=== PATIENT | female | born 1955 | race Asian ===

== ENCOUNTER → 2020-08-06 07:41 | Outpatient (CLI) | payer OTHER, SELFPAY ==
[2020-08-06 08:46] LABS: Add Manual Diff / Slide Review NO; Basophils Absolute Auto 0 /uL (0-100); Basophils Percent Auto 0.9 % (0-2); Eosinophils Absolute Auto 100 /uL (0-450); Eosinophils Percent Auto 2.6 % (2-4); Hematocrit 39.5 % (36-46); Hemoglobin 13.3 g/dL (12.0-16.0); Lymphocytes Absolute Auto 1300 /uL (1100-4500); Lymphocytes Percent Auto 30.7 % (25-40); Mean Corpuscular HGB Conc 33.7 % (30-36); Mean Corpuscular Hemoglobin 30.9 PG (26-34); Mean Corpuscular Volume 91.7 fL (80-100); Monocytes Absolute Auto 400 /uL (0-900); Neutrophils Absolute Auto 2400 /uL (1500-7000); Neutrophils Percent Auto 55.8 % (50-75); Platelet Count 247 X10^3/uL (150-400); Red Blood Cell Count 4.31 X10^6/uL (4.0-5.2); Red Cell Distribution Width 13.1 % (11.6-14.8); White Blood Cell Count 4.3 X10^3/uL (4.5-11.0)
[2020-08-06 09:05] LABS: HEMOLYSIS < 15 (0-50)
[2020-08-06 09:06] LABS: Alanine Aminotransferase 16 IU/L (<35); Albumin Globulin Ratio 1.7 (1.0-2.8); Alkaline Phosphatase 63 U/L (38-126); Aspartate Aminotransferase 25 IU/L (14-36); BUN Creatinine Ratio 26.4 (6-22); Bilirubin Total 0.2 mg/dL (0.2-1.3); Blood Urea Nitrogen 19 mg/dL (7-17); Calcium 9.4 mg/dL (8.4-10.2); Carbon Dioxide 29 mmol/L (22-32); Chloride 106 mmol/L (98-107); Cholesterol 220 mg/dL (140-199); Estimated Glomerular Filt Rate > 60.0 mL/min (>60); Globulin 2.4 g/dL (1.7-4.1); Glucose 85 mg/dL (80-110); HDL Cholesterol 69 mg/dL (40-60); LDL Cholesterol Calculated 136 mg/dL (<100); Sodium 140 mmol/L (137-145); Total Protein 6.4 g/dL (6.3-8.2); Triglycerides 77 mg/dL (35-150)
[2020-08-06 09:46] LABS: TSH w/ Reflex to FT4 2.85 uIU/mL (0.47-4.68)
[2020-08-06 10:15] LABS: Estradiol, Total 14.6 pg/mL
== END ==
PROVIDERS: PCP Registered Nurse Diabetes Educator; Referring Provider Registered Nurse Diabetes Educator; Visit Provider Registered Nurse Diabetes Educator
DX: Z00.00 Encounter for general adult medical examination without abnormal findings (principal); N95.1 Menopausal and female climacteric states
CPT/HCPCS: 36415; 80053; 80061; 82670; 83001; 84443; 85025

== ENCOUNTER → 2021-08-25 12:47 | Outpatient (CLI) | payer OTHER, SELFPAY ==
--- NOTE | 2021-08-25 12:50 | DI.MG.S_ITS ---
BILATERAL DIGITAL SCREENING MAMMOGRAM 3D/2D WITH CAD: 08/25/2021 CLINICAL: Routine screening. Comparison is made to exam dated: 12/07/2018 mammogram - outside location. The tissue of both breasts is heterogeneously dense. This may lower the sensitivity of mammography. Current study was also evaluated with a Computer Aided Detection (CAD) system. No significant masses, calcifications, or other findings are seen in either breast. There has been no significant interval change. IMPRESSION: NEGATIVE There is no mammographic evidence of malignancy. A 1 year screening mammogram is recommended. This exam was interpreted at Station ID: [id number]. NOTE: For mammograms, a report in lay terms will be sent to the patient. Approximately 15% of breast malignancies will not be visualized mammographically. In the management of a palpable breast mass, a negative mammogram must not discourage biopsy of a clinically suspicious lesion. Electronically Signed By: Crystal rosenbaum/tara:08/25/2021 13:47:48 letter sent: Normal Exam ACR BI-RADS Category 1: Negative 3341F
== END ==
PROVIDERS: PCP Registered Nurse Diabetes Educator; Referring Provider Registered Nurse Diabetes Educator; Visit Provider Registered Nurse Diabetes Educator
DX: Z12.31 Encounter for screening mammogram for malignant neoplasm of breast (principal)
CPT/HCPCS: 77063; 77067

== ENCOUNTER 2022-05-27 08:56 | Day surgery (SDC) | payer OTHER, SELFPAY ==
--- NOTE | 2022-05-27 | PATH_ITS ---
[facility] Accession Number: [id number] No. of containers..01 Tissue . 01 Material submitted: . colon - PROXIMAL TRANSVERSE COLON POLYP . 01 Diagnosis: Proximal Transverse Colon Polyp, Biopsy: Tubular adenoma. MRV 06/02/2022 1407 Local . 01 Electronically signed: . Zelda Graham MD, Pathologist NPI- [id number] . 01 Gross description: . PROXIMAL TRANSVERSE COLON POLYP: Received in formalin are 2 fragment(s) of arceo, soft tissue measuring 0.3 x 0.2 x 0.2 cm to 0.2 x 0.2 x 0.1 cm submitted entirely in 1 cassette(s) /CPE 05/28/2022 0626 Local . 01 Pathologist provided ICD-10: D12.3 . 01 CPT . 042791 Specimen Comment: A courtesy copy of this report has been sent to [phone] Performed at: 01 [facility] [address] [place] [address] Suite [facility], [place], [place] [id number] MD Van Elam MD Phone: [phone]
[2022-05-27 09:16] VITALS: BP 111/65; PULSE 63; RESP 16; TEMP 36.1; O2SAT 100; BMI 20.9
[2022-05-27] MEDS: LACTATED RINGERS 1,000 ML 150 ML IV (09:39)
--- NOTE | 2022-05-27 09:43 | P.HP_ITS ---
History of Present Illness History of Present Illness Date Patient Seen: 05/27/22 Time Patient Seen: 09:43 Chief complaint: SDC Narrative: colon cancer screening Patient History Medical History Chronic right hip pain Dyslipidemia Elevated LDL cholesterol level Family & Social History Social History: household members spouse Tobacco & Substance use: Smoking Status Never smoker alcohol intake frequency holiday/special occasion Substance Use Type marijuana Meds Home Medications and Allergies Home Medications Medication Instructions Recorded Confirmed Type sodium,potassium,mag sulfates 17.5 See Rx Instructions PO .COMPLEX 05/12/22 05/27/22 Rx gram-3.13 gram-1.6 gram oral soln #354 mL (Suprep Bowel Prep Kit) Allergies Allergy/AdvReac Type Severity Reaction Status Date / Time sulfamethoxazole Allergy Intermediate Rash Verified 05/27/22 09:07 [From Bactrim] trimethoprim [From Bactrim] Allergy Intermediate Rash Verified 05/27/22 09:07 Review of Systems Review of Systems ROS: Yes All systems reviewed with the patient and are negative except as otherwise documented Exam Vital Signs (past 8 hours): - 05/27/22 09:16 Temperature 97 F L Pulse Rate 63 Respiratory Rate 16 Blood Pressure 111/65 Pulse Oximetry 100 Oxygen Delivery Method Room Air Oxygen Delivery Method Room Air Const General: cooperative and healthy appearing [facility] Head: normal to inspection, normocephalic and atraumatic Eyes Periorbital: periorbital findings normal Neck Neck: trachea midline Chest Chest: normal inspection of the chest Resp Effort & Inspection: normal respiratory effort and able to speak in complete sentences Cardio Rate: regular rate Rhythm: regular rhythm GI Palpation: soft Skin General: turgor normal Neuro General: patient alert, patient awake and patient oriented x3 Cognition: normal cognition Psych Appearance: grossly normal Judgment: judgment good Assessment & Plan Assessment & Plan narrative: colon cancer screening colonoscopy with MAC Time Spent With Patient Time with patient: less than 30 minutes Critical Care time: I spent a total of [] minutes of critical care time on this patient's care today; this time is exclusive of procedural time.
--- NOTE | 2022-05-27 09:52 | PM.OP.COLON ---
Operative Date/Time/Diagnoses Date of procedure: 05/27/22 Time of procedure: 10:09 Pre-op diagnosis: colon cancer screening Post-op diagnosis: same Procedure & Clinicians Study performed: Colonoscopy with polypectomy Same procedure as scheduled: Yes Indications: Colon cancer screening Surgeon: Jo Reyes Procedure Notes Procedure in detail: Preop diagnosis: Colon cancer Postop diagnosis: Same Operative procedure: Colonoscopy with hot forceps polypectomy under MAC Surgeon: Jazmine Reyes MD Findings: Single 4 mm polyp in the proximal transverse. Taken with hot forceps Procedure: Patient placed in a lateral position. Rectal exam performed showing normal tone no masses. Colonoscope inserted into the rectum and advanced to ileocecal valve with minimal difficulty. Insufflation and extraction scope and the above findings. Retroflex was included in the rectum. Impression: Single 4 mm polyp proximal transverse taken with hot forceps polypectomy. No diverticulosis Plan: Repeat colonoscopy in 5 years unless otherwise indicated by change in clinical condition Findings: polyp(s) (Proximal transverse, 4 mm polyp) Specimen(s): other (Proximal transverse polyp) Complications: none Post-procedure Recommendations: Colonoscopy in 5 years Follow up: as needed Disposition: PACU
[2022-05-27 10:15] VITALS: BP 89/57; PULSE 56; RESP 16; TEMP 36.2; O2SAT 99
[2022-05-27 10:20] VITALS: BP 102/70; PULSE 54; RESP 16; O2SAT 99
[2022-05-27 10:35] VITALS: BP 106/60; PULSE 58; RESP 18; O2SAT 99
== END 2022-05-27 10:47 | disposition home or self-care (01) ==
PROVIDERS: PCP Registered Nurse Diabetes Educator; Referring Provider Surgery; Visit Provider Surgery
PROC: 0DJD8ZZ Inspection of Lower Intestinal Tract, Via Natural or Artificial Opening Endoscopic (ICD-10-PCS; CPT 45378; principal; 2022-05-27 10:00)
DX: Z12.11 Encounter for screening for malignant neoplasm of colon (principal); D12.3 Benign neoplasm of transverse colon
CPT/HCPCS: 45384; J2704

== ENCOUNTER → 2022-06-08 08:31 | Outpatient (CLI) | payer OTHER, SELFPAY ==
[2022-06-08 09:18] LABS: Hematocrit 40.3 % (36-46); Hemoglobin 13.4 g/dL (12.0-16.0); Mean Corpuscular HGB Conc 33.1 % (30-36); Mean Corpuscular Hemoglobin 30.1 PG (26-34); Mean Corpuscular Volume 90.7 fL (80-100); Platelet Count 249 X10^3/uL (150-400); Red Blood Cell Count 4.45 X10^6/uL (4.0-5.2); Red Cell Distribution Width 14.3 % (11.6-14.8); White Blood Cell Count 5.3 X10^3/uL (4.5-11.0)
[2022-06-08 09:45] LABS: Alanine Aminotransferase 37 IU/L (<35); Albumin 4.1 g/dL (3.5-5.0); Albumin Globulin Ratio 1.3 (1.0-2.8); Alkaline Phosphatase 73 U/L (38-126); Aspartate Aminotransferase 33 IU/L (14-36); BUN Creatinine Ratio 18.1 (6-22); Bilirubin Total 0.4 mg/dL (0.2-1.3); Blood Urea Nitrogen 13 mg/dL (7-17); Carbon Dioxide 30 mmol/L (22-32); Chloride 104 mmol/L (98-107); Cholesterol 285 mg/dL (140-199); Estimated Glomerular Filt Rate > 60 mL/min (>60); Globulin 3.1 g/dL (1.7-4.1); Glucose 91 mg/dL (80-110); HDL Cholesterol 64 mg/dL (40-60); HEMOLYSIS 16 (0-50); LDL Cholesterol Calculated 196 mg/dL (<100); Potassium 4.1 mmol/L (3.4-5.1); Sodium 140 mmol/L (137-145); Total Protein 7.2 g/dL (6.3-8.2); Triglycerides 123 mg/dL (35-150)
[2022-06-08 10:17] LABS: TSH w/ Reflex to FT4 3.43 uIU/mL (0.47-4.68)
== END ==
PROVIDERS: PCP Registered Nurse Diabetes Educator; Referring Provider Registered Nurse Diabetes Educator; Visit Provider Registered Nurse Diabetes Educator
DX: Z00.00 Encounter for general adult medical examination without abnormal findings (principal); E78.5 Hyperlipidemia, unspecified
CPT/HCPCS: 36415; 80053; 80061; 84443; 85027

== ENCOUNTER → 2022-08-01 15:16 | Outpatient (CLI) | payer OTHER, SELFPAY ==
[2022-08-01 16:22] LABS: BUN Creatinine Ratio 17.4 (6-22); Blood Urea Nitrogen 12 mg/dL (7-17); Calcium 9.6 mg/dL (8.4-10.2); Carbon Dioxide 31 mmol/L (22-32); Chloride 104 mmol/L (98-107); Estimated Glomerular Filt Rate > 60 mL/min (>60); Glucose 87 mg/dL (80-110); HEMOLYSIS < 15 (0-50); Potassium 3.8 mmol/L (3.4-5.1); Sodium 140 mmol/L (137-145)
== END ==
PROVIDERS: PCP Registered Nurse Diabetes Educator; Referring Provider Urology; Visit Provider Urology
DX: N36.2 Urethral caruncle (principal); R31.21 Asymptomatic microscopic hematuria; Z77.22 Contact with and (suspected) exposure to environmental tobacco smoke (acute) (chronic); Z87.891 Personal history of nicotine dependence
CPT/HCPCS: 36415; 80048; 81002

== ENCOUNTER → 2022-08-08 12:36 | Outpatient (CLI) | payer OTHER, SELFPAY ==
--- NOTE | 2022-08-08 12:37 | DI.CT.S_ITS ---
PROCEDURE: CT ABDOMEN PELVIS WO/W CON INDICATIONS: Asymptomatic microscopic hematuria/tobacco exposure TECHNIQUE: Optional 5 mm thick noncontrast images acquired from the diaphragm to the symphysis pubis. After the administration of intravenous contrast, 5 mm thick images acquired from the diaphragm to the symphysis pubis after a 10-minute delay. 2 mm thick coronal and sagittal reformats were then performed of the kidneys and ureters. For radiation dose reduction, the following was used: automated exposure control, adjustment of mA and/or kV according to patient size. COMPARISON: None. FINDINGS: Image quality: Excellent. Lung bases: Lung bases are clear. Heart size is normal. Urinary system: Both kidneys are normal in size, without hydronephrosis or nephrolithiasis on pre-contrast images. No perinephric fat stranding. There is normal bilateral renal enhancement. Renal calyces appear normal in morphology when filled with contrast. Opacified portions of both ureters demonstrate normal caliber. Bladder wall thickness is normal. No calcified bladder stones. Other solid organs: Liver is normal in size and enhancement. Fluid attenuating liver cysts. Gallbladder is unremarkable . Biliary system is non dilated. Pancreas enhances normally. Spleen is normal in size and enhancement. No adrenal nodules. Peritoneum and bowel: Bowel loops demonstrate normal wall thickness and caliber. No free fluid or air. Nodes and vessels: No retroperitoneal or mesenteric adenopathy by size criteria. Aorta and inferior vena cava are normal in size. Abdominal wall: No ventral hernias. Pelvis: No pathologic free pelvic fluid. No inguinal hernias or adenopathy. Bones: No suspicious bony lesions. No vertebral body compression fractures. IMPRESSION: No findings to explain the patient's hematuria. No filling defects within the opacified renal collecting system and no nephrolithiasis. Dictated by: Logan Carter M.D. on 08/08/2022 at 14:18 Approved by: Logan Carter M.D. on 08/08/2022 at 14:21
== END ==
PROVIDERS: PCP Registered Nurse Diabetes Educator; Referring Provider Urology; Visit Provider Urology
DX: R31.21 Asymptomatic microscopic hematuria (principal); Z87.891 Personal history of nicotine dependence; Z77.22 Contact with and (suspected) exposure to environmental tobacco smoke (acute) (chronic)
CPT/HCPCS: 74178; Q9967

== ENCOUNTER → 2022-12-09 07:33 | Outpatient (CLI) | payer MEDICARE, OTHER, SELFPAY ==
[2022-12-09 09:00] LABS: Alanine Aminotransferase 25 IU/L (<35); Albumin 4.1 g/dL (3.5-5.0); Albumin Globulin Ratio 1.7 (1.0-2.8); Alkaline Phosphatase 60 U/L (38-126); Aspartate Aminotransferase 31 IU/L (14-36); Bilirubin Total 0.7 mg/dL (0.2-1.3); Bilirubin Unconjugated 0.7 mg/dL (0.0-1.1); Cholesterol 285 mg/dL (140-199); Globulin 2.4 g/dL (1.7-4.1); HDL Cholesterol 61 mg/dL (40-60); HEMOLYSIS < 15 (0-50); LDL Cholesterol Calculated 190 mg/dL (<100); Total Protein 6.5 g/dL (6.3-8.2); Triglycerides 170 mg/dL (35-150)
== END ==
PROVIDERS: PCP Registered Nurse Diabetes Educator; Referring Provider Registered Nurse Diabetes Educator; Visit Provider Registered Nurse Diabetes Educator
DX: E78.5 Hyperlipidemia, unspecified (principal); R74.8 Abnormal levels of other serum enzymes
CPT/HCPCS: 36415; 80061; 80076

== ENCOUNTER → 2023-12-26 13:14 | Outpatient (CLI) | payer MEDICARE, OTHER, SELFPAY ==
[2023-12-26 14:23] LABS: Add Manual Diff / Slide Review NO; Basophils Absolute Auto 0 /uL (0-100); Basophils Percent Auto 0.6 % (0-2); Eosinophils Absolute Auto 100 /uL (0-450); Hematocrit 44.6 % (36-46); Hemoglobin 14.8 g/dL (12.0-16.0); Lymphocytes Absolute Auto 2100 /uL (1100-4500); Lymphocytes Percent Auto 30.4 % (25-40); Mean Corpuscular HGB Conc 33.1 % (30-36); Mean Corpuscular Hemoglobin 30.4 PG (26-34); Mean Corpuscular Volume 91.9 fL (80-100); Monocytes Absolute Auto 600 /uL (0-900); Monocytes Percent Auto 9.3 % (3-14); Neutrophils Absolute Auto 4000 /uL (1500-7000); Neutrophils Percent Auto 58.7 % (50-75); Platelet Count 260 X10^3/uL (150-400); Red Blood Cell Count 4.85 X10^6/uL (4.0-5.2); Red Cell Distribution Width 13.7 % (11.6-14.8); White Blood Cell Count 6.9 X10^3/uL (4.5-11.0)
[2023-12-26 14:37] LABS: Erythrocyte Sedimentation Rate 6 MM/HR (0-20)
[2023-12-26 14:39] LABS: Hemoglobin A1C% w Est Avg Glu 5.6 % (4.0-6.0)
[2023-12-26 14:43] LABS: Alanine Aminotransferase 24 IU/L (<35); Albumin 4.6 g/dL (3.5-5.0); Albumin Globulin Ratio 1.6 (1.0-2.8); Alkaline Phosphatase 78 U/L (38-126); Amylase 57 U/L (30-110); Aspartate Aminotransferase 31 IU/L (14-36); Bilirubin Total 0.7 mg/dL (0.2-1.3); Blood Urea Nitrogen 21 mg/dL (7-17); C-Reactive Protein Quant < 0.5 mg/dL (<1.0); Calcium 9.5 mg/dL (8.4-10.2); Carbon Dioxide 24 mmol/L (22-32); Chloride 105 mmol/L (98-107); Estimated Glomerular Filt Rate > 60 mL/min (>60); Globulin 2.8 g/dL (1.7-4.1); Glucose 100 mg/dL (80-110); HEMOLYSIS < 15 (0-50); Lipase 78 U/L (23-300); Potassium 3.5 mmol/L (3.4-5.1); Sodium 138 mmol/L (137-145); Total Protein 7.4 g/dL (6.3-8.2)
[2023-12-26 14:52] LABS: Free T4, Direct Thyroxine 1.29 ng/dL (0.78-2.19)
[2023-12-26 15:05] LABS: Thyroid Stimulating Hormone 1.34 uIU/mL (0.47-4.68)
[2023-12-26 15:19] LABS: Appearance Urine UA CLEAR; Bilirubin Urine UA NEGATIVE (NEGATIVE); Color Urine UA YELLOW; Glucose Urine UA NEGATIVE (Negative); Ketones Urine UA 1+ (NEGATIVE); Leukocyte Esterase Urine UA NEGATIVE (NEGATIVE); Nitrite Urine UA NEGATIVE (Negative); Occult Blood Urine UA 2+ (Negative); Protein Urine UA TRACE (Negative); Specific Gravity Urine UA >=1.030 (1.000-1.035); Urobilinogen Urine UA 0.2 E.U./dL (0.2)
[2023-12-26 16:00] LABS: Bacteria Urine Occasional (0-1); Culture Indicated Urine Cult Not Indicated; RBC Urine 0-1/HPF (0-5/HPF); Squamous Epithelial Cell Urine 0-1 /HPF (0-5/HPF); Urine Volume 10mL (spun); WBC Urine 0-1/HPF (0-5/HPF)
[2023-12-28 07:36] LABS: Interpretation Negative (Negative)
[2024-01-02 09:14] LABS: Deamidated Gliadin Ab IgA 3 units (0-19); Deamidated Gliadin Ab IgG 2 units (0-19); Immunoglobulin A,Qn 113 mg/dL (87-352); t-Transglutaminase IgA <2 U/mL (0-3)
== END ==
PROVIDERS: PCP Registered Nurse Diabetes Educator; Referring Provider Registered Nurse Diabetes Educator; Visit Provider Registered Nurse Diabetes Educator
DX: R11.0 Nausea (principal); R53.83 Other fatigue; R14.2 Eructation; R19.7 Diarrhea, unspecified; R61 Generalized hyperhidrosis; R53.1 Weakness
CPT/HCPCS: 36415; 80053; 81001; 82150; 82784; 83013; 83036; 83516; 83690; 84439; 84443; 85025; 85651; 86140

== ENCOUNTER → 2023-12-30 12:49 | Outpatient (CLI) | payer MEDICARE, OTHER, SELFPAY ==
[2023-12-30 14:29] LABS: Occult Blood 1 Negative (Negative); Occult Blood 2 Negative (Negative); Occult Blood 3 Negative (Negative)
== END ==
PROVIDERS: PCP Registered Nurse Diabetes Educator; Referring Provider Registered Nurse Diabetes Educator; Visit Provider Registered Nurse Diabetes Educator
DX: R19.7 Diarrhea, unspecified (principal); R61 Generalized hyperhidrosis; R11.0 Nausea; R53.83 Other fatigue; R53.1 Weakness
CPT/HCPCS: 82270

== ENCOUNTER → 2025-01-07 09:35 | Outpatient (CLI) | payer MEDICARE, OTHER, SELFPAY ==
[2025-01-07 10:40] LABS: Hematocrit 41.9 % (36-46); Hemoglobin 14.3 g/dL (12.0-16.0); Mean Corpuscular HGB Conc 34.0 % (30-36); Mean Corpuscular Hemoglobin 31.0 PG (26-34); Mean Corpuscular Volume 91.1 fL (80-100); Platelet Count 223 X10^3/uL (150-400)
[2025-01-07 11:12] LABS: Hemoglobin A1C% w Est Avg Glu 5.7 % (4.0-6.0)
[2025-01-07 11:13] LABS: Albumin 4.4 g/dL (3.5-5.0); Albumin Globulin Ratio 1.8 (1.0-2.8); Blood Urea Nitrogen 16 mg/dL (7-17); Calcium 9.4 mg/dL (8.4-10.2); Carbon Dioxide 26 mmol/L (22-32); Cholesterol 262 mg/dL (140-199); Estimated Glomerular Filt Rate > 60 mL/min (>60); Globulin 2.5 g/dL (1.7-4.1); Glucose 93 mg/dL (70-99); Potassium 4.4 mmol/L (3.4-5.1); Sodium 139 mmol/L (137-145); Total Protein 6.9 g/dL (6.3-8.2); Triglycerides 62 mg/dL (35-150)
[2025-01-07 11:14] LABS: Alanine Aminotransferase 24 IU/L (<35); Alkaline Phosphatase 73 U/L (38-126); HDL Cholesterol 77 mg/dL (40-60)
[2025-01-07 11:39] LABS: TSH w/ Reflex to FT4 0.84 uIU/mL (0.47-4.68)
[2025-01-07 13:20] LABS: Chloride 105 mmol/L (98-107); HEMOLYSIS < 15 (0-50)
== END ==
PROVIDERS: PCP Registered Nurse Diabetes Educator; Referring Provider Registered Nurse Diabetes Educator; Visit Provider Registered Nurse Diabetes Educator
DX: Z00.00 Encounter for general adult medical examination without abnormal findings (principal); E78.5 Hyperlipidemia, unspecified
CPT/HCPCS: 36415; 80053; 80061; 83036; 84443; 85027

== ENCOUNTER → 2025-02-24 09:19 | Outpatient (CLI) | payer MEDICARE, OTHER, SELFPAY | LOC: ECHO 09:20 | PROVIDERS: PCP Registered Nurse Diabetes Educator; Referring Provider Registered Nurse Diabetes Educator; Visit Provider Registered Nurse Diabetes Educator | DX: I34.0 Nonrheumatic mitral (valve) insufficiency (principal); R06.09 Other forms of dyspnea; R00.1 Bradycardia, unspecified; R53.83 Other fatigue | CPT/HCPCS: 93306 ==

== ENCOUNTER → 2025-02-26 10:19 | Outpatient (CLI) | payer MEDICARE, OTHER, SELFPAY | LOC: NUCM 10:20 | PROVIDERS: PCP Registered Nurse Diabetes Educator; Referring Provider Registered Nurse Diabetes Educator; Visit Provider Registered Nurse Diabetes Educator | DX: R06.09 Other forms of dyspnea (principal); R00.1 Bradycardia, unspecified; R53.83 Other fatigue | CPT/HCPCS: 93017 ==

== ENCOUNTER → 2025-03-04 06:54 | Outpatient (CLI) | payer MEDICARE, SELFPAY ==
--- NOTE | 2025-03-04 06:55 | DI.US.S_ITS ---
PROCEDURE: US ABDOMEN LIMITED INDICATIONS: HEPATIC CYST ON ECHO TECHNIQUE: Real-time focused scanning was performed of the abdomen, with image documentation. COMPARISON: [facility], CT, CT ABDOMEN PELVIS WO/W CON, 08/08/2022, 12:50. FINDINGS: The liver is normal in size and demonstrates no suspicious lesions. Multiple simple liver cysts are seen. The largest measures 8.6 x 8.3 x 7.6 within the mid posterior liver. There is apparent mass effect upon the IVC from the liver cyst. No findings of gallstones or sludge are seen. The gallbladder wall is not thickened, measuring 3 mm or less. No specific pericholecystic fluid is seen. The sonographic Hill sign is negative. There is no biliary dilatation, the common bile duct measures 3 mm. No significant pancreatic abnormality is seen on these images. The visualized right kidney is unremarkable, without hydronephrosis. IMPRESSION: There is a large central liver cyst, measuring up to 8.6 cm on these images. Associated mass effect can be seen upon the adjacent IVC. Dictated by: Hira Hernandez M.D. on 03/04/2025 at 10:46 Approved by: Hira Hernandez M.D. on 03/04/2025 at 10:48
== END ==
LOC: US 06:54
PROVIDERS: PCP Registered Nurse Diabetes Educator; Referring Provider Registered Nurse Diabetes Educator; Visit Provider Registered Nurse Diabetes Educator
DX: K76.89 Other specified diseases of liver (principal)
CPT/HCPCS: 76705

== ENCOUNTER → 2025-03-11 10:08 | Outpatient (CLI) | payer MEDICARE, SELFPAY ==
--- NOTE | 2025-03-11 10:11 | DI.MG.S_ITS ---
MM screening mammo BI: 03/11/2025. BI-RADS: 1 CLINICAL: 69-year old female for bilateral screening mammogram. Tyrer-Cuzick lifetime risk of 7.0%. No personal or first-degree family history of breast cancer. PRIOR EXAMS 08/25/2021, 12/07/2018. MAMMOGRAPHY TECHNIQUE: 2D and 3D (tomosynthesis) digital mammographic views obtained, with additional images as needed for full coverage. Current study was also evaluated with a Computer Aided Detection (CAD) system. DENSITY C. The breasts are heterogeneously dense, which may obscure small masses. MAMMOGRAPHY FINDINGS Bilateral: No suspicious mass, asymmetry, microcalcification, or other abnormality seen. IMPRESSION: * No evidence of malignancy. RECOMMENDATIONS Bilateral * Annual screening mammography. OVERALL ASSESSMENT CATEGORY BI-RADS-1: Negative. The [employer] recommends annual screening mammography beginning at age 40 for women with average risk of breast cancer. ELECTRONICALLY SIGNED: Erika Cobos M.D. on 03/14/2025 at 06:19:53 PM PT Interpreting Station ID: [id number]
== END ==
LOC: MAMMO 10:10
PROVIDERS: PCP Registered Nurse Diabetes Educator; Referring Provider Registered Nurse Diabetes Educator; Visit Provider Registered Nurse Diabetes Educator
DX: Z12.31 Encounter for screening mammogram for malignant neoplasm of breast (principal); R92.333 Mammographic heterogeneous density, bilateral breasts
CPT/HCPCS: 77063; 77067

== ENCOUNTER → 2025-03-17 11:13 | Outpatient (CLI) | payer MEDICARE, SELFPAY ==
--- NOTE | 2025-03-17 11:14 | DI.RAD.S_ITS ---
PROCEDURE: XR DEXA AXIAL SKELETON INDICATIONS: eval, elevated risk for osteoporosis COMPARISON: None. FINDINGS: Lumbar Spine: Bone mineral density 1.070 g/cm2, T score 0.2. Left Femoral Neck: Bone mineral density 0.668 g/cm2, T score -1.6. Left Hip: Bone mineral density 0.832 g/cm2, T score -0.9. Fracture Risk Calculation (when applicable): 10-year fracture risk of a major osteoporotic fracture 9.2 percent and of a hip fracture 1.3 percent. (T score greater or equal to -1.0 to: NORMAL) (T score from -1.1 to -2.4: OSTEOPENIA) (T score less than or equal to -2.5: OSTEOPOROSIS) IMPRESSION: Osteopenia. Follow-up guidelines as follows: Osteoporosis: Consider a repeat DEXA and Vertebral Fracture Assessment (VFA) exam in 2 years or sooner if medically necessary, to reassess this patient's status. Osteopenia: Consider a repeat DEXA in 2-3 years to reassess this patient's status, or if there is a new clinical indication. Normal: Consider a repeat DEXA in 5 years or sooner, or if there is a new clinical indication. All treatment decisions require clinical judgment and consideration of individual patient factors, including patient preferences, comorbidities, previous drug use, risk factors not captured in the FRAX model (e.g., frailty, falls, vitamin D deficiency, increased bone turnover, interval significant decline in bone density ) and possible under- or over-estimation of fracture risk by FRAX. In addition, the NOF Guide recommends that FDA-approved medical therapies be considered in postmenopausal women and men age >= 50 years with a: * Hip or vertebral (clinical or morphometric) fracture * T-score of <=-2.5 at the spine or hip * Ten-year fracture probability by FRAX of >= 3% for hip fracture or >=20% for major osteoporotic fracture. Dictated by: Jim Vega M.D. on 03/17/2025 at 12:14 Approved by: Jim Vega M.D. on 03/17/2025 at 12:15
== END ==
LOC: RAD 11:13
PROVIDERS: PCP Registered Nurse Diabetes Educator; Referring Provider Registered Nurse Diabetes Educator; Visit Provider Registered Nurse Diabetes Educator
DX: M85.852 Other specified disorders of bone density and structure, left thigh (principal); Z78.0 Asymptomatic menopausal state
CPT/HCPCS: 77080

== ENCOUNTER → 2025-04-03 10:42 | Outpatient (CLI) | payer MEDICARE, OTHER, SELFPAY ==
--- NOTE | 2025-04-03 10:45 | DI.CT.S_ITS ---
PROCEDURE: CT LUNG LOW DOSE SCREENING INDICATIONS: eval, high risk screening for lung CA TECHNIQUE: Noncontrast 2.0-2.5 mm thick sections acquired from the pulmonary apices to the posterior costophrenic angles. 7 mm thick axial MIP, and 5 mm coronal and sagittal reformats were then acquired. For radiation dose reduction, the following was used: automated exposure control, adjustment of mA and/or kV according to patient size. COMPARISON: [facility], CT, CT ABDOMEN PELVIS WO/W CON, 08/08/2022, 12:50. FINDINGS: Image quality: Diagnostic. Lower Neck: No enlarged lymph nodes. Thyroid: No thyroid nodules which require sonographic follow up, per consensus guidelines. Axillae: No enlarged lymph nodes. Chest Wall: Unremarkable. Bones: Unremarkable. Lungs and Pleura: No pneumothorax or pleural effusions. No consolidation or suspicious nodules. Note is made of a single punctate calcified granuloma deep costophrenic sulcus right lower lobe posteriorly with a slight degree of adjacent lung scarring. No pulmonary nodules suspicious for representing early lung carcinoma is found. Heart: Heart size is normal. No pericardial effusion. Thoracic Vessels: The aorta and pulmonary arteries demonstrate normal size. Mediastinum and Sara: No enlarged lymph nodes. Esophagus: No wall thickening. No hiatal hernia. Upper Abdomen: Visualized upper abdomen solid organs and bowel loops appear normal except for previously present large central hepatic cyst that previously had measured 7.6 cm in July of 2022 and now measures 8.5 cm. IMPRESSION: No suspicious pulmonary nodules. LUNG-RADS 1; continued annual screening, if eligible. Clinically Significant Non-pulmonary Findings: Slow enlargement of a large central hepatic cyst. Old punctate calcified granuloma with slight adjacent lung scarring posterior costophrenic sulcus on the right. Dictated by: Olu Jessica M.D. on 04/03/2025 at 12:50 Approved by: Olu Jessica M.D. on 04/03/2025 at 12:55
== END ==
PROVIDERS: PCP Registered Nurse Diabetes Educator; Referring Provider Registered Nurse Diabetes Educator; Visit Provider Registered Nurse Diabetes Educator
DX: Z12.2 Encounter for screening for malignant neoplasm of respiratory organs (principal); Z87.891 Personal history of nicotine dependence; K76.89 Other specified diseases of liver
CPT/HCPCS: 71271